=== PATIENT | male | born 1985 ===

== ENCOUNTER 2023-10-09 23:27 | Emergency (ER) | payer OTHER ==
[2023-10-09 23:47] VITALS: RESP 18; TEMP 97.9
[2023-10-10] MEDS ORDERED: IBUPROFEN 600 MG STARTER PACK 4 TAB BTL PO STA (00:47)
[2023-10-10] MEDS ORDERED: AMOXIC-POT CLAV 875MG STARTER PACK 2 TAB BTL PO STA (00:47)
--- NOTE | 2023-10-10 00:49 | ED ---
General Adult HPI - General Chief complaint: Dental/Oral Stated complaint: Dental Pain Time Seen by Provider: 10/09/23 23:43 Source: patient Mode of arrival: ambulatory Limitations: language barrier - History of Present Illness Initial comments: 38-year-old male presenting with a chief complaint of dental problem. History obtained through patient's family as he is Thai speaking. History limited. Notes has had ongoing dental pain for a while however recently has not had improvement of pain with Motrin and Tylenol. Denies fever or chills. No chest pain or shortness of breath. - Related Data Previous Rx's Medication Instructions Recorded Acetaminophen Tab [Tylenol] 1,000 mg PO Q6HR #30 tablet 10/10/23 Amoxic-Pot Clav 875-125Mg 1 tab PO Q12HR 7 Days #14 tab 10/10/23 [Augmentin 875-125] Ibuprofen [Motrin] 600 mg PO Q8HR PRN #30 tab 10/10/23 Losartan [Cozaar] 50 mg PO DAILY #30 tab 10/10/23 amLODIPine 10 mg PO DAILY #30 tab 10/10/23 Allergies Allergy/AdvReac Type Severity Reaction Status Date / Time No Known Allergies Allergy Verified 10/09/23 23:32 Review of Systems ROS Statement: Those systems with pertinent positive or pertinent negative responses have been documented in the HPI. ROS Other: All systems not noted in ROS Statement are negative. Past Medical History Past Medical History: Hypertension History of Any Multi-Drug Resistant Organisms: None Reported Past Surgical History: No Surgical Hx Reported Past Psychological History: No Psychological Hx Reported Smoking Status: Never smoker Past Alcohol Use History: None Reported Past Drug Use History: None Reported General Exam Limitations: language barrier ENT exam: Present: other (Cavity of upper molar on left side. No surrounding abscess. No significant oropharyngeal swelling. No stridor. No drooling.) Respiratory exam: Present: normal lung sounds bilaterally Cardiovascular Exam: Present: regular rate, normal rhythm GI/Abdominal exam: Present: soft Neurological exam: Present: alert, oriented X3 Course Vital Signs 10/09/23 23:29 Temperature 97.9 F Pulse Rate 102 H Respiratory 18 Rate Blood Pressure 163/94 O2 Sat by Pulse 97 Oximetry Medical Decision Making - Medical Decision Making Was pt. sent in by a medical professional or institution (, PA, [employer], urgent care, hospital, or care home...) When possible be specific @ -No Did you speak to anyone other than the patient for history (EMS, parent, family, police, friend...)? What history was obtained from this source @ -History obtained from the patient's family and friends. For further details please see HPI. Did you review nursing and triage notes (agree or disagree)? Why? @ -I reviewed and agree with nursing and triage notes Were old charts reviewed (outside hosp., previous admission, EMS record, old EKG, old radiological studies, urgent care reports/EKG's, care home records)? Report findings @ -No old charts were reviewed Differential Diagnosis (chest pain, altered mental status, abdominal pain women, abdominal pain men, vaginal bleeding, weakness, fever, dyspnea, syncope, headache, dizziness, GI bleed, back pain, seizure, CVA, palpatations, mental health, musculoskeletal)? @ -Kirit's angina, ANUG, periapical abscess. This is not meant to be an all inclusive list. EKG interpreted by me (3pts min.). @ -None X-rays interpreted by me (1pt min.). @ -None done CT interpreted by me (1pt min.). @ -None done U/S interpreted by me (1pt. min.). @ -None done What testing was considered but not performed or refused? (CT, X-rays, U/S, labs)? Why? @ -None What meds were considered but not given or refused? Why? @ -None Did you discuss the management of the patient with other professionals (professionals i.e. , PA, [employer], lab, RT, psych nurse, director of social services, motorboat operator, teacher, tax revenue officer, case monitor)? Give summary @ -No Was smoking cessation discussed for >3mins.? @ -No Was critical care preformed (if so, how long)? @ -No Were there social determinants of health that impacted care today? How? (Homelessness, low income, unemployed, alcoholism, drug addiction, transportation, low edu. Level, literacy, decrease access to med. care, penitentiary, rehab)? @ -No Was there de-escalation of care discussed even if they declined (Discuss DNR or withdrawal of care, Hospice)? DNR status @ -No What co-morbidities impacted this encounter? (DM, HTN, Smoking, COPD, CAD, Cancer, CVA, ARF, Chemo, Hep., AIDS, mental health diagnosis, sleep apnea, morbid obesity)? @ -None Was patient admitted / discharged? Hospital course, mention meds given and route, prescriptions, significant lab abnormalities, going to OR and other pertinent info. @ -Discharge 38-year-old male presenting to the ED with dental pain. Exam did show cavity of upper molar. No evidence of Kirit angina at this time. Provided prescription for Motrin, Tylenol, and Augmentin. Additionally, patient notes that he has run out of his blood pressure medications and has not yet established primary care in this area. Provided refills for his amlodipine and losartan. Discharged home in stable condition. Discussed return precautions with patient's friend/family members who verbalizes agreement. Undiagnosed new problem with uncertain prognosis? @ -No Drug Therapy requiring intensive monitoring for toxicity (Heparin, Nitro, Insulin, Cardizem)? @ -No Were any procedures done? @ -No Diagnosis/symptom? @ -Dental pain Acute, or Chronic, or Acute on Chronic? @ -Acute Uncomplicated (without systemic symptoms) or Complicated (systemic symptoms)? @ -Uncomplicated Side effects of treatment? @ -No Exacerbation, Progression, or Severe Exacerbation? @ -No Poses a threat to life or bodily function? How? (Chest pain, [place], [place], pneumonia, PE, COPD, DKA, ARF, appy, cholecystitis, CVA, Diverticulitis, Homicidal, Suicidal, threat to staff... and all critical care pts) @ -No Disposition Clinical Impression: Dental cavity, HTN (hypertension) Disposition: HOME SELF-CARE Condition: Good Instructions (If sedation given, give patient instructions): Toothache (ED) Additional Instructions: Please return to the Emergency Department if symptoms worsen or any other concerns. Please establish primary care. Please follow-up with a dentist. Prescriptions: amLODIPine 10 mg PO DAILY #30 tab Amoxic-Pot Clav 875-125Mg [Augmentin 875-125] 1 tab PO Q12HR 7 Days #14 tab Losartan [Cozaar] 50 mg PO DAILY #30 tab Ibuprofen [Motrin] 600 mg PO Q8HR PRN #30 tab PRN Reason: Pain Acetaminophen Tab [Tylenol] 1,000 mg PO Q6HR #30 tablet Is patient prescribed a controlled substance at d/c from ED?: No Referrals: None,Stated [Primary Care Provider] - 1-2 days Time of Disposition: 01:08
[2023-10-10 01:23] VITALS: BP 130/77; PULSE 85
== END 2023-10-10 01:14 | disposition home or self-care (01) ==
LOC: EC 23:27
DX: K02.9 Dental caries, unspecified (principal); I10 Essential (primary) hypertension
CPT/HCPCS: 99283